=== PATIENT | male | born 1940 | race Caucasian/White ===

== ENCOUNTER 2017-08-01 02:59 | Emergency (ER) | payer MEDICARE, BC ==
[~2017-08-01] VITALS: Ht 182.9 cm; Wt 113.6 kg
[~2017-08-01 02:59] MED LIST: BAYER LOW DOSE81 MG PO; BAYER LOW81 MG OR; BIOTUSSIN PO; C 250 PO; CENTRU3 PO; CIPROFLOXACN500 MG PO; COREG25 MG PO; DULERA1 AE1 IN; FISH OIL1000 MG PO; FLAGYL ER750 MG PO; FLOMAX0.4 M1 PO; FUROSEMIDE40 MG PO; HYDROCHLOROT12.5 MG OR; HYZAAR1 TAB PO; IPRATROPIU0.5 MG/3 M IN; ISOSORB MONO30 MG OR; ISOSORB MONO60 MG PO; KLOR-CON 1010 ME1 PO; LANOXIN0.25 MG OR; LOFIBRA134 MG PO; METOPROLOL SUCC50 MG PO; MEVACOR40 MG PO; NEBULIZER COMPRESSOR NEB; PEPCID20 MG OR; PLAVIX75 MG OR; PRADAXA150 MG PO; PREDNISONE10 MG PO; PRILOSEC40 MG PO; PYRIDIUM200 MG PO; SINGULAIR PO; THEOPHYLLINE E400 MG PO; ZESTRIL20 MG OR; ZITHROMAX500 MG PO
[2017-08-01] MEDS ORDERED: DELTASONE20 MG PO (03:48)
[2017-08-01] MEDS ORDERED: PERCOCET 5/325M1 TAB PO (03:48)
[2017-08-01 04:27] VITALS: BP 136/83
== END 2017-08-01 04:40 | disposition home or self-care (01) ==
LOC: ED 02:59
DX: S46.911A Strain of unspecified muscle, fascia and tendon at shoulder and upper arm level, right arm, initial encounter (principal); M19.90 Unspecified osteoarthritis, unspecified site; I48.91 Unspecified atrial fibrillation; J44.9 Chronic obstructive pulmonary disease, unspecified; I11.0 Hypertensive heart disease with heart failure; I50.9 Heart failure, unspecified; X50.3XXA Overexertion from repetitive movements, initial encounter; Y93.H9 Activity, other involving exterior property and land maintenance, building and construction; Y92.007 Garden or yard of unspecified non-institutional (private) residence as the place of occurrence of the external cause

== ENCOUNTER 2018-07-04 12:55 | Emergency (ER) | payer MEDICARE, BC ==
[~2018-07-04] VITALS: Ht 182.9 cm; Wt 111.0 kg
[~2018-07-04 12:55] MED LIST changes: +DELTASONE20 MG PO; +PERCOCET 5/325M1 TAB PO
[2018-07-04 13:45] LABS: HEMATOCRIT 49.1 % (39.0-50.0); HEMOGLOBIN 16.8 g/dl (14.0-18.0); IMMATURE GRANULOCYTES 0.3 % (0.0-5.0); MEAN CELL VOLUME 94.1 fL CALC (80.0-100.0); MEAN CORPUSCULAR HGB 32.2 pG CALC (26.0-32.0); MEAN CORPUSCULAR HGB CONC 34.2 g/L CALC (32.0-36.0); NEUT# 5.28 thou/uL (1.82-7.42); RED BLOOD COUNT 5.22 mill/uL (4.70-6.10); RED CELL DISTRI WIDTH 13.8 % (11.5-15.5)
[2018-07-04 14:02] LABS: ALBUMIN 4.2 g/dL (3.2-5.0); ALKALINE PHOSPHATASE 37 u/l (38-126); ANION GAP 16 (6-22 (CALC)); BILIRUBIN, TOTAL 2.2 mg/dL (0.0-1.4); BUN 11 mg/dL (8-23); BUN/CREATININE RATIO 13 (12-20 (CALC)); CARBON DIOXIDE 22 mmol/l (22-30); CHLORIDE 110 mmol/l (95-108); CREATININE 0.9 mg/dL (0.7-1.3); GFR > 60 ML/MIN (>=60 (CALC)); GFR FOR AFR.AMER. > 60 ML/MIN (>=60 (CALC)); LIPASE 79 u/l (23-300); POTASSIUM 3.6 mmol/l (3.5-5.1); SGOT/AST 18 u/l (19-48); SODIUM 145 mmol/l (137-146); TOTAL PROTEIN 6.8 g/dL (6.3-8.2)
[2018-07-04 15:27] LABS: URINE BILIRUBIN - DIPSTICK NEGATIVE (NEGATIVE); URINE BLOOD DIPSTICK NEGATIVE (NEGATIVE); URINE COLOR YELLOW; URINE GLUCOSE - DIPSTICK NEGATIVE (NEGATIVE); URINE KETONE NEGATIVE (NEGATIVE); URINE LEUK ESTERASE NEGATIVE (NEGATIVE); URINE NITRITE - DIPSTICK NEGATIVE (Negative); URINE PH 6.5 (4.5-8.0); URINE PROTEIN - DIPSTICK NEGATIVE (NEG-TRACE); URINE UROBILINOGEN - DIPSTICK 0.2 E.U./dL (0.2)
[2018-07-04] MEDS ORDERED: ONDANSETRON4 MG PO (15:50)
[2018-07-04 16:00] VITALS: BP 152/84
== END 2018-07-04 16:00 | disposition home or self-care (01) ==
LOC: ED 12:55
PROVIDERS: Family Medicine
DX: R11.0 Nausea (principal); I77.819 Aortic ectasia, unspecified site; R05 Cough; R35.0 Frequency of micturition; I10 Essential (primary) hypertension; I48.91 Unspecified atrial fibrillation; R10.32 Left lower quadrant pain; K76.0 Fatty (change of) liver, not elsewhere classified
CPT/HCPCS: Q9967

== ENCOUNTER 2022-04-19 18:21 | Emergency (ER) | payer MEDICARE, BC ==
[~2022-04-19] VITALS: Ht 182.9 cm; Wt 97.7 kg
[~2022-04-19 18:21] MED LIST changes: +ONDANSETRON4 MG PO
[2022-04-19 19:54] LABS: HEMATOCRIT 47.1 % (39.0-50.0); HEMOGLOBIN 15.5 g/dl (14.0-18.0); IMMATURE GRANULOCYTES 0.2 % (0.0-5.0); MEAN CELL VOLUME 96.5 fL CALC (80.0-100.0); MEAN CORPUSCULAR HGB 31.8 pG CALC (26.0-32.0); MEAN CORPUSCULAR HGB CONC 32.9 g/dL CAL (32.0-36.0); NEUT# 6.67 thou/uL (1.82-7.42); RED BLOOD COUNT 4.88 mill/uL (4.70-6.10); RED CELL DISTRI WIDTH 13.6 % (11.5-15.5)
[2022-04-19 19:55] LABS: URINE BILIRUBIN - DIPSTICK NEGATIVE (NEGATIVE); URINE BLOOD DIPSTICK TRACE-INTACT (NEGATIVE); URINE COLOR YELLOW; URINE GLUCOSE - DIPSTICK NEGATIVE (NEGATIVE); URINE KETONE NEGATIVE (NEGATIVE); URINE LEUK ESTERASE NEGATIVE (NEGATIVE); URINE PROTEIN - DIPSTICK NEGATIVE (NEG-TRACE); URINE SPECIFIC GRAVITY 1.025; URINE UROBILINOGEN - DIPSTICK 0.2 E.U./dL (0.2)
[2022-04-19 19:58] LABS: URINE NITRITE - DIPSTICK NEGATIVE (Negative)
[2022-04-19] MEDS ORDERED: METOPROL TAR25 MG PO (20:02)
[2022-04-19] MEDS ORDERED: VALSARTAN40 MG (20:02)
[2022-04-19 20:03] LABS: ALBUMIN 4.7 g/dL (3.2-5.0); ANION GAP 12 (6-22 (CALC)); BUN 13 mg/dL (8-23); BUN/CREATININE RATIO 17 (12-20 (CALC)); CARBON DIOXIDE 27 mmol/l (22-30); CHLORIDE 107 mmol/l (95-108); CREATININE 0.8 mg/dL (0.7-1.3); GFR FOR AFR.AMER. > 60 ML/MIN (>=60 (CALC)); GFR OTHER RACES > 60 ML/MIN (>=60 (CALC)); POTASSIUM 4.1 mmol/l (3.5-5.1); SODIUM 142 mmol/l (137-146); TOTAL PROTEIN 7.8 g/dL (6.3-8.2)
[2022-04-19] MEDS ORDERED: ALLOPURINOL100 MG PO (20:03)
[2022-04-19] MEDS ORDERED: GABAPENTIN100 MG PO (20:03)
[2022-04-19 20:04] LABS: ALKALINE PHOSPHATASE 100 u/l (38-126); BILIRUBIN, TOTAL 1.8 mg/dL (0.0-1.4); SGOT/AST 223 u/l (19-48)
[2022-04-19] MEDS ORDERED: FUROSEMIDE20 MG PO (20:04)
[2022-04-19] MEDS ORDERED: COLCHICINE0.6 M2 (20:04)
[2022-04-19 20:19] LABS: LIPASE 9057 u/l (23-300)
[2022-04-19 21:28] VITALS: BP 123/78
== END 2022-04-19 21:30 | disposition home or self-care (01) ==
LOC: ED 18:21
PROVIDERS: Nurse Practitioner
DX: K85.10 Biliary acute pancreatitis without necrosis or infection (principal); K80.20 Calculus of gallbladder without cholecystitis without obstruction; I48.91 Unspecified atrial fibrillation; I11.0 Hypertensive heart disease with heart failure; I50.9 Heart failure, unspecified; J44.9 Chronic obstructive pulmonary disease, unspecified; E78.00 Pure hypercholesterolemia, unspecified

== ENCOUNTER 2022-05-26 08:44 | Day surgery (SDC) | payer MEDICARE, BC ==
[~2022-05-26] VITALS: Ht 182.9 cm; Wt 96.2 kg
[~2022-05-26 08:44] MED LIST changes: +ALLOPURINOL100 MG PO; +COLCHICINE0.6 M2; +EZALLOR SPRINKLE5 MG PO; +FUROSEMIDE20 MG PO; +GABAPENTIN100 MG PO; +METOPROL TAR25 MG PO; +VALSARTAN40 MG
[2022-05-26] MEDS ORDERED: PERCOCET 5/321 COMBO PO ×2 (11:06→11:24)
[2022-05-26 13:44] VITALS: BP 131/81
== END 2022-05-26 12:05 | disposition home or self-care (01) ==
LOC: ORM 08:44
PROVIDERS: ATTEND Surgery
PROC: 0FT44ZZ Resection of Gallbladder, Percutaneous Endoscopic Approach (ICD-10-PCS; principal; 2022-05-26)
PROC: BF00YZZ Plain Radiography of Bile Ducts using Other Contrast (ICD-10-PCS; 2022-05-26)
DX: K85.10 Biliary acute pancreatitis without necrosis or infection (principal); K80.10 Calculus of gallbladder with chronic cholecystitis without obstruction; I10 Essential (primary) hypertension; I48.91 Unspecified atrial fibrillation; G62.9 Polyneuropathy, unspecified
CPT/HCPCS: J0131; Q9967